=== PATIENT | female | born 1975 ===

== ENCOUNTER 2020-04-24 00:39 | Emergency (ER) | payer SELFPAY ==
[~2020-04-24] VITALS: Ht 154.9 cm; Wt 63.9 kg
[2020-04-24 00:42] VITALS: BP 155/68
[2020-04-24] MEDS ORDERED: PHENAZOPYRIDINE 200 MG TABLET PO ONE (02:00)
[2020-04-24] MEDS ORDERED: PHENAZOPYRIDINE 200 MG TABLET ONE (02:01)
[2020-04-24 02:07] LABS: HCG UR SG 1.027 (1.003-1.030)
[2020-04-24 02:09] LABS: MICROSCOPIC INDICATED
--- NOTE | 2020-04-24 02:45 | NUR ---
PATIENT WAS DISPLEASED THAT SHE COULD NOT RECIEVE TWO DAYS WORTH OF ANTIBIOTICS TO TAKE HOME WITH HER. [place] AND DID NOT WANT TO FILL PRESCRIPTIONS AT AN LOCAL PHARMACY. THE PATIENT USES [facility], INFORMATION GIVEN REGARDING [facility] NETWORK AND AVAILABILITY TO USE INFORMATION CURRENTLY ON FILE TO FILL PRESCRIPTION. NO EVIDENCE OF LEARNING EXHIBITED. PATIENT THEN ASKED FOR DIRECTIONS TO [facility].
[2020-04-24] MEDS ORDERED: CEFDINIR 300 MG CAPSULE ONE (02:47)
[2020-04-24] MEDS ORDERED: CEFDINIR 300 MG CAPSULE PO ONE (03:00)
== END 2020-04-24 04:07 | disposition home or self-care (01) ==
LOC: ED 03:00
DX: N30.01 Acute cystitis with hematuria (principal)
CPT/HCPCS: 81001; 81025; 87077; 87086; 87186; 99283